=== PATIENT | male | born 1975 | race Caucasian/White ===

== ENCOUNTER 2019-11-11 11:46 | Emergency (ER) | payer BC ==
[2019-11-11] MEDS ORDERED: Morphine 4 MG/ML Syringe IVPUSH ONE (11:54)
[2019-11-11] MEDS ORDERED: Sodium Chloride 0.9% 10 ML Syringe FLUSH PRN (11:54)
[2019-11-11] MEDS ORDERED: Sodium Chloride 0.9% 10 ML SDV IV PRN (11:54)
[2019-11-11] MEDS ORDERED: Sodium Chloride 0.9% 2.5 ML Syringe FLUSH PRN (11:54)
[2019-11-11] MEDS ORDERED: Diphtheria,Pertussis(Acell),Tetanus Vaccine 0.5 ML Syringe IM ONE (11:56)
[2019-11-11] MEDS ORDERED: Sodium Chloride 0.9% 1,000 ML IV SCH (12:00)
[2019-11-11 12:05] VITALS: BP 123/70; PULSE 79
--- NOTE | 2019-11-11 12:18 | EDM.PDOC ---
ED HPI GENERAL MEDICAL PROBLEM - General Chief Complaint: Trauma Stated Complaint: MAY HAVE BROKEN RIB Time Seen by Provider: 11/11/19 11:53 - History of Present Illness INITIAL COMMENTS - FREE TEXT/NARRATIVE: History of present illness: 44-year-old male presenting with headache, chest/rib pain, and abdominal pain after being struck by his cow. Apparently the cow started to run into him, first hit him in the chest with her head and then dragged him over the ground. Apparently happened yesterday at 8 PM. It was a mother cow who attacked him while he was working on the baby cow. He sustained injury to the head, chest and abdomen. Also injury to the right lower leg. He is able to bear weight. His friends were able to get the cow away from him and brought him here to the hospital. He is ambulating here without difficulty. He actually reported that it is more uncomfortable for him to sit/lay down on the stretcher and therefore preferred to stand during our discussion. Review of systems: As per history of present illness and below otherwise all systems reviewed and negative. Past medical history: As per history of present illness and as reviewed below otherwise noncontributory. Denies past medical history Surgical history: As per history of present illness and as reviewed below otherwise noncontributory. Past surgical history includes lumbar surgery and discectomy. Social history: No reported history of drug or alcohol abuse. Family history: As per history of present illness and as reviewed below otherwise noncontributory. Physical exam: HEENT: Abrasion/contusion/ecchymosis over the left forehead. No scalp tenderness or hematoma. No fractures palpable on the skull. Normocephalic, mucous membranes moist, throat clear, Neck: supple, nontender, trachea midline. No C-spine tenderness. Lungs: No respiratory distress. Left anterior and posterior chest wall tenderness over the ribs. No crepitus or palpable fractures. There is a bruise high in the left upper chest which appears to be healing, patient reports this is from an isolated minor injury and not from today. Heart: RRR Abdomen: Soft, nondistended, no ecchymosis. Right upper quadrant tenderness. No guarding or rebound. No rigidity. Pelvis: Stable nontender. Extremities: Stand and bear weight, and walk through the emergency department. Ecchymosis right lower calf. No bony tenderness of all 4 extremities. Neurovascularly unremarkable. Neuro: Awake, alert, oriented. Neuro Exam nonfocal. Diagnostics: CT brain/neck/chest/abdomen/pelvis: 3 rib fractures on the right side, 10, 11, 12. No other acute traumatic injury. Therapeutics: [] MDM: Primarily chest and abdominal pain on examination. significant mechanism of Cow Attack. Full ramesh scan performed which shows only significant finding to be rib fractures of 10,11 and 12 on the right side. No intra-abdominal findings. Patient continued to have pain after morphine, however symptoms improved after Dilaudid. Discussed with Dr. Sommer, surgeon for plan for admission versus discharge. Impression: [] Plan: [] Definitive disposition and diagnosis as appropriate pending reevaluation and review of above. Ribs Pain Score (Numeric/FACES): 8 - Related Data Allergies Allergy/AdvReac Type Severity Reaction Status Date / Time No Known Allergies Allergy Verified 11/11/19 12:01 Home Meds: Home Meds Acetaminophen/HYDROcodone [Midpines 325-5 MG] 1 tab PO Q8H PRN #15 tablet 11/11/19 [Rx] Cyclobenzaprine [Flexeril] 10 mg PO TID PRN #20 tab 11/11/19 [Rx] Ibuprofen [Ibu] 600 mg PO Q8HR #30 tablet 11/11/19 [Rx] diazePAM [Valium] 2 mg PO BID PRN #12 tablet 11/11/19 [Rx] Past Medical History - Past Health History Medical/Surgical History: Denies Medical/Surgical History Review of Systems - Review of Systems Review Of Systems: See Below (See dictation) ED EXAM, GENERAL - Physical Exam Exam: See Below (See dictation) Course - Vital Signs Last Recorded V/S: Last Vital Signs Temp 97.2 F 11/11/19 11:55 Pulse 79 11/11/19 11:55 Resp 18 11/11/19 11:55 BP 123/70 11/11/19 11:55 Pulse Ox 99 11/11/19 11:55 - Orders/Labs/Meds Orders: Active Orders 24 hr Category Date Time Status Incentive Spirometry [RT Incentive Spirometry] [RC] Care 11/11/19 15:17 Active Q1HWA Vaccines to be Administered [RC] PER UNIT ROUTINE Care 11/11/19 11:56 Active UA W/MICROSCOPIC [URIN] Stat Lab 11/11/19 11:54 Ordered Sodium Chloride 0.9% [Normal Saline] Med 11/11/19 11:54 Active 10 ml IV ASDIRECTED PRN Sodium Chloride 0.9% [Normal Saline] 1,000 ml Med 11/11/19 12:00 Active IV .BOLUS Sodium Chloride 0.9% [Saline Flush] Med 11/11/19 11:54 Active 10 ml FLUSH ASDIRECTED PRN Sodium Chloride 0.9% [Saline Flush] Med 11/11/19 11:54 Active 2.5 ml FLUSH ASDIRECTED PRN Peripheral IV Insertion Adult [OM.PC] Urgent Oth 11/11/19 11:54 Ordered Medication Orders Sodium Chloride (Normal Saline) 1,000 mls @ 500 mls/hr IV .BOLUS JESSE Last Admin: 11/11/19 12:22 Dose: 500 mls/hr Sodium Chloride (Saline Flush) 10 ml FLUSH ASDIRECTED PRN PRN Reason: Keep Vein Open Sodium Chloride (Saline Flush) 2.5 ml FLUSH ASDIRECTED PRN PRN Reason: Keep Vein Open Sodium Chloride (Normal Saline) 10 ml IV ASDIRECTED PRN PRN Reason: IV Use Labs: Laboratory Tests 11/11/19 11/11/19 11/11/19 Range/Units 12:07 12:07 12:07 WBC 11.26 H (4.0-11.0) K/uL RBC 5.01 (4.50-5.90) M/uL Hgb 15.3 (13.0-17.0) g/dL Hct 44.5 (38.0-50.0) % MCV 88.8 (80.0-98.0) fL MCH 30.5 (27.0-32.0) pg MCHC 34.4 (31.0-37.0) g/dL RDW Std Deviation 40.5 (28.0-62.0) fl RDW Coeff of Khoi 13 (11.0-15.0) % Plt Count 318 (150-400) K/uL MPV 10.20 (7.40-12.00) fL Neut % (Auto) 72.1 (48.0-80.0) % Lymph % (Auto) 19.0 (16.0-40.0) % Riley % (Auto) 8.2 (0.0-15.0) % Eos % (Auto) 0.6 (0.0-7.0) % Baso % (Auto) 0.1 (0.0-1.5) % Neut # (Auto) 8.1 H (1.4-5.7) K/uL Lymph # (Auto) 2.1 (0.6-2.4) K/uL Riley # (Auto) 0.9 H (0.0-0.8) K/uL Eos # (Auto) 0.1 (0.0-0.7) K/uL Baso # (Auto) 0.0 (0.0-0.1) K/uL Nucleated RBC % 0.0 /100WBC Nucleated RBCs # 0 K/uL INR 0.91 Sodium 138 (136-148) mmol/L Potassium 4.0 (3.5-5.1) mmol/L Chloride 103 (98-107) mmol/L Carbon Dioxide 24.9 (21.0-32.0) mmol/L BUN 12 (7.0-18.0) mg/dL Creatinine 0.9 (0.8-1.3) mg/dL Est Cr Clr Drug Dosing 112.57 mL/min Estimated GFR (MDRD) > 60.0 ml/min Glucose 102 (74-106) mg/dL Calcium 8.8 (8.5-10.1) mg/dL Total Bilirubin 0.6 (0.2-1.0) mg/dL AST 36 (15-37) IU/L ALT 35 (14-63) IU/L Alkaline Phosphatase 73 (46-116) U/L Total Protein 7.4 (6.4-8.2) g/dL Albumin 4.2 (3.4-5.0) g/dL Globulin 3.2 (2.6-4.0) g/dL Albumin/Globulin Ratio 1.3 (0.9-1.6) Blood Type Antibody Screen 11/11/19 Range/Units 12:19 WBC (4.0-11.0) K/uL RBC (4.50-5.90) M/uL Hgb (13.0-17.0) g/dL Hct (38.0-50.0) % MCV (80.0-98.0) fL MCH (27.0-32.0) pg MCHC (31.0-37.0) g/dL RDW Std Deviation (28.0-62.0) fl RDW Coeff of Khoi (11.0-15.0) % Plt Count (150-400) K/uL MPV (7.40-12.00) fL Neut % (Auto) (48.0-80.0) % Lymph % (Auto) (16.0-40.0) % Riley % (Auto) (0.0-15.0) % Eos % (Auto) (0.0-7.0) % Baso % (Auto) (0.0-1.5) % Neut # (Auto) (1.4-5.7) K/uL Lymph # (Auto) (0.6-2.4) K/uL Riley # (Auto) (0.0-0.8) K/uL Eos # (Auto) (0.0-0.7) K/uL Baso # (Auto) (0.0-0.1) K/uL Nucleated RBC % /100WBC Nucleated RBCs # K/uL INR Sodium (136-148) mmol/L Potassium (3.5-5.1) mmol/L Chloride (98-107) mmol/L Carbon Dioxide (21.0-32.0) mmol/L BUN (7.0-18.0) mg/dL Creatinine (0.8-1.3) mg/dL Est Cr Clr Drug Dosing mL/min Estimated GFR (MDRD) ml/min Glucose (74-106) mg/dL Calcium (8.5-10.1) mg/dL Total Bilirubin (0.2-1.0) mg/dL AST (15-37) IU/L ALT (14-63) IU/L Alkaline Phosphatase (46-116) U/L Total Protein (6.4-8.2) g/dL Albumin (3.4-5.0) g/dL Globulin (2.6-4.0) g/dL Albumin/Globulin Ratio (0.9-1.6) Blood Type B POSITIVE Antibody Screen NEGATIVE Meds: Medications Generic Name Dose Route Start Last Admin Trade Name Freq PRN Reason Stop Dose Admin Sodium Chloride 1,000 mls @ 500 mls/hr 11/11/19 12:00 11/11/19 12:22 Normal Saline IV 500 mls/hr .BOLUS JESSE Administration Sodium Chloride 10 ml 11/11/19 11:54 Saline Flush FLUSH ASDIRECTED PRN Keep Vein Open Sodium Chloride 2.5 ml 11/11/19 11:54 Saline Flush FLUSH ASDIRECTED PRN Keep Vein Open Sodium Chloride 10 ml 11/11/19 11:54 Normal Saline IV ASDIRECTED PRN IV Use Discontinued Medications Generic Name Dose Route Start Last Admin Trade Name Rozina PRN Reason Stop Dose Admin Diphtheria/Tetanus/Acell Pertussis 0.5 ml 11/11/19 11:56 11/11/19 12:16 Adacel IM 11/11/19 11:57 0.5 ml .ONCE ONE Administration Hydromorphone HCl 1 mg 11/11/19 14:08 11/11/19 14:39 Dilaudid IVPUSH 11/11/19 14:09 1 mg ONETIME ONE Administration Iopamidol 100 ml 11/11/19 13:18 11/11/19 13:18 Isovue Multipack-370 (76%) IVPUSH 11/11/19 13:19 100 ml ONETIME STA Administration Morphine Sulfate 4 mg 11/11/19 11:54 11/11/19 12:16 Morphine IVPUSH 11/11/19 11:55 4 mg ONETIME ONE Administration - Re-Assessments/Exams Free Text/Narrative Re-Assessment/Exam: 11/11/19 14:08 Patient reassessed. No acute distress. He is still able to bear weight and walk about the emergency department. He reports that he started to have worsening pain and the morphine did not really help him at all and he prefers to stand as it does help resolve his symptoms slightly. Will give additional dose of pain medication. Discussed CT scan results and plan to discuss with general surgery in terms of need for admission. No other acute traumatic findings seen on CT. 11/11/19 15:16 I reassessed the patient. He is feeling somewhat better at this time. He received the Dilaudid and he reports his pain is at a tolerable level. Will discuss with surgeon regarding possible admission versus discharge. 11/11/19 15:45 Case discussed with the call surgeon, Dr. Sommer. He reports that if the patient's pain is well controlled the patient would be appropriate for attempt at outpatient management. He recommends Flexeril every 8, Valium every 6 to 12 hours, ibuprofen and Midpines as needed. He will see the patient in the office on Thursday, in 4 days. Departure - Departure Time of Disposition: 15:46 Disposition: Home, Self-Care 01 Condition: Good Clinical Impression: Multiple rib fractures Qualifiers: Encounter type: initial encounter Fracture type: closed Laterality: right Qualified Code(s): S22.41XA - Multiple fractures of ribs, right side, initial encounter for closed fracture Chest wall contusion Qualifiers: Encounter type: initial encounter Laterality: right Qualified Code(s): S20.211A - Contusion of right front wall of thorax, initial encounter Abdominal wall contusion Qualifiers: Encounter type: initial encounter Qualified Code(s): S30.1XXA - Contusion of abdominal wall, initial encounter - Discharge Information Prescriptions: Ibuprofen [Ibu] 600 mg PO Q8HR #30 tablet Acetaminophen/HYDROcodone [[place]pines 325-5 MG] 1 tab PO Q8H PRN #15 tablet PRN Reason: Pain (Severe 7-10) Cyclobenzaprine [Flexeril] 10 mg PO TID PRN #20 tab PRN Reason: Muscle Spasm diazePAM [Valium] 2 mg PO BID PRN #12 tablet PRN Reason: Muscle Spasm Instructions: How to Use Cold Therapy, [id number], Form - Incentive Spirometer Record, How to Use an Incentive Spirometer, Contusion, Contusion, [id number], Rib Fracture, [id number] Referrals: PCP,None [Primary Care Provider] - Forms: ED Department Discharge Additional Instructions: The following information is given to patients seen in the emergency department who are being discharged to home. This information is to outline your options for follow-up care. We provide all patients seen in our emergency department with a follow-up referral. The need for follow-up, as well as the timing and circumstances, are variable depending upon the specifics of your emergency department visit. If you don't have a primary care physician on staff, we will provide you with a referral. We always advise you to contact your personal physician following an emergency department visit to inform them of the circumstance of the visit and for follow-up with them and/or the need for any referrals to a consulting specialist. The emergency department will also refer you to a specialist when appropriate. This referral assures that you have the opportunity for follow-up care with a specialist. All of these measure are taken in an effort to provide you with optimal care, which includes your follow-up. Under all circumstances we always encourage you to contact your private physician who remains a resource for coordinating your care. When calling for follow-up care, please make the office aware that this follow-up is from your recent emergency room visit. If for any reason you are refused follow-up, please contact the [facility] Emergency Department at and asked to speak to the emergency department charge nurse. Please call the office for follow-up, you will need to follow-up with the surgeon on Thursday. He is expecting you. [facility] - General Surgery Professional Building [address] [place] [address], [address] [place] [address] Has been very cautious and closely monitor how the medicines affect you. If you notice you are becoming overly sleepy, immediately stop the medications. Please use your incentive spirometer every hour with 10 breaths. Sepsis Event Note (ED) - Evaluation Sepsis Screening Result: No Definite Risk - Focused Exam Vital Signs: Vital Signs Temp Pulse Resp BP Pulse Ox 11/11/19 11:55 97.2 F 79 18 123/70 99 - My Orders Last 24 Hours: My Active Orders 11/11/19 11:54 UA W/MICROSCOPIC [URIN] Stat Sodium Chloride 0.9% [Normal Saline] 10 ml IV ASDIRECTED PRN Sodium Chloride 0.9% [Saline Flush] 10 ml FLUSH ASDIRECTED PRN Sodium Chloride 0.9% [Saline Flush] 2.5 ml FLUSH ASDIRECTED PRN Peripheral IV Insertion Adult [OM.PC] Urgent 11/11/19 11:56 Vaccines to be Administered [RC] PER UNIT ROUTINE 11/11/19 12:00 Sodium Chloride 0.9% [Normal Saline] 1,000 ml IV .BOLUS 11/11/19 15:17 Incentive Spirometry [RT Incentive Spirometry] [RC] Q1HWA - Assessment/Plan Last 24 Hours: My Active Orders 11/11/19 11:54 UA W/MICROSCOPIC [URIN] Stat Sodium Chloride 0.9% [Normal Saline] 10 ml IV ASDIRECTED PRN Sodium Chloride 0.9% [Saline Flush] 10 ml FLUSH ASDIRECTED PRN Sodium Chloride 0.9% [Saline Flush] 2.5 ml FLUSH ASDIRECTED PRN Peripheral IV Insertion Adult [OM.PC] Urgent 11/11/19 11:56 Vaccines to be Administered [RC] PER UNIT ROUTINE 11/11/19 12:00 Sodium Chloride 0.9% [Normal Saline] 1,000 ml IV .BOLUS 11/11/19 15:17 Incentive Spirometry [RT Incentive Spirometry] [RC] Q1HWA
[2019-11-11 12:36] LABS: BLOOD UREA NITROGEN,BUN 12 mg/dL (7.0-18.0); CARBON DIOXIDE,CO2 24.9 mmol/L (21.0-32.0); CHLORIDE,CL 103 mmol/L (98-107); GLUCOSE RANDOM 102 mg/dL (74-106); SODIUM,NA 138 mmol/L (136-148)
[2019-11-11] MEDS ORDERED: Iopamidol 755 MG/ML 500 ML Multipack Bottle IVPUSH STA (13:18)
--- NOTE | 2019-11-11 13:29 | CT ---
CT cervical spine Technique: Multiple axial sections through the cervical spine were obtained from above C1 inferiorly to the top of T3. Reconstructed sagittal and coronal images were reviewed. Comparison: No prior cervical spine imaging is available. Findings: Mild wedging is noted of C7 which appears to be old. Disc spaces are maintained. Slight posterior osteophytes are noted at C5-6. Mild degenerative change is noted between the dens and anterior arch of C1. No acute fracture is seen. No bony central or bony neural foraminal stenosis is seen. No abnormal subluxation is seen. Impression: 1. Slight degenerative change. Minimal deformity of the body of C7 is seen believed to be old. 2. Nothing acute is appreciated. Diagnostic code #2 This report was dictated in MDT
--- NOTE | 2019-11-11 13:32 | CT ---
Head CT Technique: Multiple axial sections through the brain were obtained. Intravenous contrast was not utilized. Comparison: No prior intracranial imaging is available. Findings: Ventricles along with basal cisterns and sulci over the convexities are within normal limits for the patient's age. No abnormal parenchymal densities are seen. No evidence of intracranial hemorrhage. No midline shift or mass-effect is seen. Bone window settings were reviewed. No acute calvarial finding is seen. Visualized paranasal sinuses and mastoid sinuses show nothing acute. Impression: 1. Nothing acute is appreciated on noncontrast head CT study. Diagnostic code #1 This report was dictated in MDT
--- NOTE | 2019-11-11 13:35 | CT ---
CT abdomen and pelvis Technique: Multiple axial sections were obtained from above the dome of the diaphragm inferiorly through the pubic symphysis. Intravenous contrast was utilized. No oral contrast has been given. Comparison: No prior abdominal imaging is available. Findings: Liver shows no focal parenchymal abnormality. Gallbladder shows a small calcified gallstone. Spleen appears normal. Adrenal glands show no nodule. Pancreas is within normal limits. Kidneys show symmetric contrast enhancement with no hydronephrosis or mass. Aorta shows no aneurysm. No retroperitoneal adenopathy or mesenteric abnormalities are seen. No pelvic mass or adenopathy is seen. No free fluid or inflammatory change is seen within the abdomen or within the pelvis. Appendix not visualized. Surgical material is seen off the tip of the cecum which is most likely due to prior appendectomy. Bone window settings were reviewedf which show slight degenerative change within the spine. No acute osseous finding is appreciated. Impression: 1. Nothing acute is appreciated on CT study of the abdomen and pelvis. Diagnostic code #2 This report was dictated in MDT
--- NOTE | 2019-11-11 13:43 | CT ---
CT chest Technique: Multiple axial sections through the chest were obtained. Intravenous contrast was utilized. Findings: No pericardial fluid is seen. Aorta appears without aneurysm. Mediastinum and hilar regions appear within normal limits. No axillary adenopathy is appreciated. Increased density within the right lung base is seen possibly due to atelectasis. Minimal atelectasis within the left base is noted. Lungs otherwise are clear. No pulmonary contusion is seen. No pleural effusions or new pneumothorax is appreciated. Bone window settings were reviewed. Nondisplaced fracture is noted posteriorly within the right 10th rib. Mildly displaced fracture is noted posteriorly within the right 11th rib. Displaced rib fracture noted within the right 12th rib posteriorly. No additional rib fracture is appreciated. Vertebral body heights are maintained within the thoracic spine. Scattered degenerative change is noted. Nothing acute is appreciated within the thoracic spine. Impression: 1. Fractures within the 10th through 12th ribs posteriorly on the right side. 2. Bibasilar atelectasis worse on the right side. 3. No pneumothorax or pleural effusions are seen. Diagnostic code #3 This report was dictated in MDT
[2019-11-11] MEDS ORDERED: HYDROmorphone 1 MG/ML Syringe IVPUSH ONE (14:08)
== END 2019-11-11 16:30 | disposition home or self-care (01) ==
LOC: MW.ED 11:46
DX: S22.41XA Multiple fractures of ribs, right side, initial encounter for closed fracture (principal); S30.1XXA Contusion of abdominal wall, initial encounter; S20.211A Contusion of right front wall of thorax, initial encounter; Z23 Encounter for immunization; W55.22XA Struck by cow, initial encounter
CPT/HCPCS: 70450; 71260; 72125; 74177; 80053; 85025; 85610; 86850; 86900; 86901; 90471; 90715; 96374; 96375; 99284; J1170; J2270; J7030; Q9967